=== PATIENT | male | born 1940 | race Caucasian/White ===

== ENCOUNTER 2020-04-09 15:12 | Emergency (ER) | payer MEDICARE, BC, SELFPAY ==
[2020-04-09 15:14] VITALS: BP 145/87; PULSE 82; RESP 18; TEMP 36.3; O2SAT 95; BMI 22.4
--- NOTE | 2020-04-09 16:17 | XRR_ITS ---
PROCEDURE INFORMATION: Exam: XR Left Wrist Exam date and time: 04/09/2020 4:34 PM Age: 79 years old Clinical indication: Injury or trauma; Fall; Crushing; Wrist; Prior surgery; Surgery type: Left second finger; Additional info: Wrist injury TECHNIQUE: Imaging protocol: XR Left wrist. Views: 3 or more views. COMPARISON: No relevant prior studies available. FINDINGS: Bones/joints: Negative for acute bony abnormality. There is a sclerotic deformity involving the distal shaft of the proximal phalange of the 2nd digit which may reflect a old injury. Soft tissues: Normal. XR/XR wrist LT min 3V* [id number] IMPRESSION: No acute findings. 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
--- NOTE | 2020-04-09 16:17 | ED_ITS ---
HPI - Fall General: Chief Complaint: Fall Stated Complaint: fall, cut on left hand Time Seen by Provider: 04/09/20 16:07 History of Present Illness: HPI Narrative: Patient is a 79-year-old male comes to the ED after having a fall. Fall occurred just prior to arrival. Patient says he was walking on a sidewalk and tripped. He went down hitting his right knee on sidewalk first and then his left hand hit concrete causing skin tear. He has a skin tear on the dorsal side of his left hand. He also complains of having a little bit of pain with movement of the left wrist. Superficial abrasion on right knee, but denies any pain in right knee with ambulation. Denies any head trauma or loss of consciousness. Patient says he is up-to-date on his tetanus shot. Associated symptoms-after fall: Denies abdominal pain, chest pain, headache(s), hematuria or neck pain Review of Systems Const: Denies: fever(s), chills or fatigue Eyes: Denies: change in vision or eye discomfort ENMT: Denies: throat pain, odynophagia, nasal discharge or nasal congestion Card: Denies: chest pain, palpitations, edema, swelling of feet/ankles, dyspnea on exertion or orthopnea Resp: Denies: dyspnea, productive cough or non-productive cough GI: Denies: abdominal pain, nausea, vomiting, diarrhea, constipation or hematochezia : Denies: flank pain, difficulty urinating, dysuria or hematuria Musc: Reports: extremity pain (mild left wrist pain.); Denies: neck pain, back pain or extremity swelling Skin/Breast: Reports: new lesions (skin tear on dorsal side of left wrist); Denies: rash Neuro: Denies: headache(s), numbness in extremities or weakness in extremities Physical Exam Const: COMMON NORMALS: no acute distress, patient oriented x3 and alert GENERAL APPEARANCE: cooperative and comfortable HENMT: COMMON NORMALS: normocephalic HEAD & SCALP: normocephalic MOUTH: Normal oral and palatal mucosa present THROAT: posterior oropharynx normal and uvula midline Neck/C-Spine: COMMON NORMALS: supple GENERAL: Yes normal visual inspection Resp: COMMON NORMALS: normal respiratory effort, No retractions, No use of accessory muscles and clear to auscultation bilaterally AUSCULTATION: clear to auscultation bilaterally Cardio: COMMON NORMALS: regular rate, regular rhythm, S1 normal heart sound present, S2 normal heart sound present, No gallops present (Cardio), No clicks present (Cardio), No murmurs present (Cardio) and Peripheral pulses 2+ throughout RATE: regular rate RHYTHM: regular rhythm HEART SOUNDS: S1 normal heart sound present and S2 normal heart sound present PERIPHERAL PULSES: Peripheral pulses 2+ throughout GI: COMMON NORMALS: Normal to inspection, nondistended, normoactive bowel sounds present, Soft to palpation, non-tender and no masses PALPATION: Yes Soft to palpation : COMMON NORMALS: Yes no CVA tenderness BLADDER/KIDNEY EXAM: Yes no CVA tenderness Back/Pelvis: COMMON NORMALS: no CVA tenderness Extremity: NARRATIVE EXTREMITY EXAM: Left hand?small skin tear approximately 2 cm in length on dorsal aspect of left hand. No visible deformity seen in left wrist and neurovascular intact with radial pulse 2+. Full range of motion with minimal pain in left wrist. Patient's right knee has a superficial abrasion that is not actively bleeding. No edema or ecchymosis in right knee seen. Neuro: COMMON NORMALS: patient oriented x3 and moves all extremities SENSORIUM/ORIENTATION: Yes alert Skin: NARRATIVE SKIN EXAM: Left hand?small skin tear approximately 2 cm in length on dorsal aspect of left hand. GENERAL SKIN EXAM: dry skin Course Vital Signs: Vital signs: Vital Signs Temperature 97.3 F L 04/09/20 15:14 Pulse Rate 82 04/09/20 15:14 Respiratory Rate 18 04/09/20 15:14 Blood Pressure 108/69 04/09/20 17:10 Pulse Oximetry 95 04/09/20 15:14 MDM - Fall MDM Narrative: Medical decision making narrative: Patient is a 79-year-old male comes to the ED after a fall and has a skin tear on dorsal side of left hand. Patient is up-to-date on his tetanus. He has some mild left wrist pain with range of motion. Patient in no other acute pain or distress. He denies any head trauma or loss of consciousness after fall. Nurse irrigated skin tear extensively and then placed bacitracin on it and applied a new bandage. Left wrist x-ray showed no acute fractures or findings. Patient was discharged with a prescription of cephalexin for prophylactic treatment. Return to ED precautions given. Follow-up with PCP in 7 to 10 days for reevaluation. He was instructed on how to care for skin tear. Patient understood and agreed with plan. Imaging Data^: Xray Ortho: Attestation: I personally reviewed and interpreted this imaging study as follows: My impression: Left wrist x-ray?no acute fractures or findings seen. Discharge Plan Discharge Patient Disposition: Home Clinical Impression: Skin tear of hand without complication Qualifiers: Encounter type: initial encounter Laterality: left Qualified Code(s): S61.412A - Laceration without foreign body of left hand, initial encounter Fall Qualifiers: Encounter type: initial encounter Qualified Code(s): W19.XXXA - Unspecified fall, initial encounter Condition: Stable Prescriptions: New cephalexin 500 mg capsule 500 mg PO TID 4 Days Qty: 12 RF: 0 Discharge Orders: Discharge ED (Routine); Ordered 04/09/20 Ordered By: Cole Levy Discharge Diet: Regular Discharge Activity: Resume usual activity Patient Instructions: Skin Tear (ED) Activity Restrictions/Additional Instructions: Follow-up with medical provider as directed in 7 to 10 days for reevaluation. Clean skin tear daily with warm soap and water, apply Neosporin and bandage daily. Take prophylactic dose of antibiotics as prescribed to help prevent any infection. Watch for signs of infection such as erythema, warmth, tenderness or purulent drainage. If you see any other signs return to the ED, urgent care or primary care immediately for reevaluation. Take medications as prescribed. Return to the ER or your medical provider if condition worsens. Please read and understand discharge instructions. If any questions, please ask. Coding Level of Care Code ED Ground Water Pump Installer for Elodia Mack Exam Comprehensive
[2020-04-09 16:52] VITALS: BP 105/62
[2020-04-09] MEDS: bacitracin ointment Pkt 1 EACH TOPICAL (16:55)
[2020-04-09 17:10] VITALS: BP 108/69
== END 2020-04-09 17:11 | disposition home or self-care (01) ==
PROVIDERS: Emergency Provider Physician Assistant
DX: S61.412A Laceration without foreign body of left hand, initial encounter (principal); W01.0XXA Fall on same level from slipping, tripping and stumbling without subsequent striking against object, initial encounter
CPT/HCPCS: 12345; 73110; 99281; 99283

== ENCOUNTER 2022-04-10 13:48 | Emergency (ER) | payer MEDICARE, BC, SELFPAY ==
[2022-04-10 13:53] VITALS: BP 136/81; PULSE 115; RESP 16; TEMP 36.7; O2SAT 96
--- NOTE | 2022-04-10 14:13 | ED_ITS ---
HPI - Back Pain/Injury General: Chief Complaint: Back Pain/Injury Stated Complaint: back pain Time Seen by Provider: 04/10/22 14:11 History of Present Illness: Mr. Sánchez is a 81-year-old gentleman presenting to the emergency department due to right-sided flank pain. Onset of symptoms was approximately 90 minutes prior to arrival without known specific provoking event. Does have a history of kidney stones though is unsure if this feels similar. Intensity is moderate to severe. Has had nausea but no vomiting. Denies other significant changes in health or infectious symptoms. No other specific changes in health, exacerbating, or alleviating factors identified. Onset (ago): minute(s) Timing: constant Severity: severe Similar Symptoms Previously: Yes Quality: sharp and stabbing Location: right flank Radiation: groin Exacerbating factors: none Relieving factors: none Associated symptoms: Reports nausea; Deny chills, fever(s), hematuria, urinary urgency or vomiting Review of Systems General: Reports: 10 or more systems reviewed and unremarkable except in HPI and below Const: Denies: fever(s) or chills GI: Reports: nausea; Denies: vomiting : Denies: urinary urgency or hematuria PFS ED PFSH: Family History (Updated 04/14/22 @ 13:56 by Vj Shearer) Mother , at age 99 CAD (coronary artery disease) Dementia Father , at age 67 CAD (coronary artery disease) Social History (Updated 04/14/22 @ 13:57 by Vj Shearer) Smoking and tobacco status: never smoked Alcohol intake: current Alcohol intake frequency: few times a month Adopted: No Household members: spouse Marital status: Current occupational status: retired History of recent travel: No Physical Exam Const: COMMON NORMALS: alert GENERAL APPEARANCE: cooperative, well developed and in distress (Initially uncomfortable due to pain) HENMT: COMMON NORMALS: normocephalic and atraumatic HEAD & SCALP: normocephalic and atraumatic Eye: COMMON NORMALS: conjunctivae normal CONJUNCTIVA: Yes conjunctivae normal SCLERA: sclerae normal Neck/C-Spine: COMMON NORMALS: supple GENERAL: Yes trachea midline Resp: COMMON NORMALS: normal respiratory effort and clear to auscultation bilaterally EFFORT & INSPECTION: Yes able to speak in complete sentences AUSCULTATION: clear to auscultation bilaterally Cardio: COMMON NORMALS: regular rhythm RATE: tachycardic RHYTHM: regular rhythm GI: COMMON NORMALS: Soft to palpation PALPATION: Yes Soft to palpation and No Tenderness to palpation present (GI) : COMMON NORMALS: Yes normal external exam and Yes Testes normal Extremity: GENERAL: Yes normal exam except as noted and No edema Neuro: COMMON NORMALS: moves all extremities SENSORIUM/ORIENTATION: Yes alert and No Orientation impaired Psych: COMMON NORMALS: mental status grossly normal and Normal thought process present THOUGHT PROCESS: Normal thought process present Course Vital Signs: Vital signs: Vital Signs Temperature 98.1 F 04/10/22 13:53 Pulse Rate 81 04/10/22 17:29 Respiratory Rate 16 04/10/22 17:29 Blood Pressure 121/74 04/10/22 16:00 Pulse Oximetry 99 04/10/22 17:29 Oxygen Delivery Me thod 04/10/22 16:00 MDM - Back Pain/Injury Medical Decision Making 81-year-old gentleman presenting to the emerged department due to sudden onset of flank pain. Patient is quite uncomfortable on initial exam. Exam otherwise as above. No evidence of acute surgical abdomen. Labs with no leukocytosis, normal hemoglobin, normal platelet count. Metabolic panel not significant derangement. Urinalysis with evidence of hematuria withou t convincing evidence of urinary tract infection superimposed. CT demonstrates mild right hydroureteronephrosis secondary to foreign ammeter mid ureteral calcification. Incidental findings noted discussed with patient. There is no recent laboratory studies for comparison or comparison imaging michael dies. Patient symptoms are significantly improved with antiemetic, morphine, ketorolac. Most likely etiology of patient symptoms is midureteral stone. Given improvement as well as physical exam improvement and ability to tolerate p.o. intake and the absence of signs of systemic illness or evidence of urinary tract infection believe that outpatient management with close follow-up is appropriate . Strict return precautions also appropriate. Plan treat patient with Flomax, oxycodone, Zofran. The results of ED evaluation were discussed with the patient including prescriptions and/or symptomatic cares (if applicable) including appropriate and responsible use, followup plan, and return precautions. The patient verbalized understanding and felt safe for discharge. Medical Records I reviewed the patient's medical records. Labs I reviewed the patient's lab results. 04/10/22 14:30 04/10/22 14:30 Radiology Impressions Abdomen/Pelvis CT 04/10/22 14:57 IMPRESSION: 1. Very mild RIGHT hydroureteronephrosis secondary to a 4 mm calcification in the mid ureter. 2. Sigmoid diverticulosis without acute diverticulitis. 3. Atherosclerosis aorta. 4. Cholelithiasis without acute cholecystitis. 5. Moderate size hiatal hernia. Laboratory Results WBC 7.9 10^3/uL (4.0-10.0) 04/10/22 14:30 RBC 4.54 10^6/uL (4.1-5.3) 04/10/22 14:30 Hgb 13.8 g/dL (11.7-16.6) 04/10/22 14:30 Hct 41.0 % (42.0-52.0) L 04/10/22 14:30 MCV 90.3 fl (80-94) 04/10/22 14:30 MCH 30.4 pg (28.0-34.0) 04/10/22 14:30 MCHC 33.7 g/dL (30.0-36.0) 04/10/22 14:30 RDW 11.8 % (12.1-15.1) L 04/10/22 14:30 Plt Count 143 10^3/cmm (130-400) 04/10/22 14:30 MPV 10.2 fL (7.4-10.4) 04/10/22 14:30 Neut % (Auto) 72.8 % 04/10/22 14:30 Lymph % (Auto) 17.1 % 04/10/22 14:30 [place] % (Auto) 8.0 % 04/10/22 14:30 Eos % (Auto) 1.3 % 04/10/22 14:30 Baso % (Auto) 0.4 % 04/10/22 14:30 Neut # (Auto) 5.76 10^3/uL (1.8-7.7) 04/10/22 14:30 Lymph # (Auto) 1.4 10^3/uL (0.8-4.8) 04/10/22 14:30 [place] # (Auto) 0.6 10^3/uL (0.2-0.9) 04/10/22 14:30 Eos # (Auto) 0.1 10^3/uL (0.0-0.8) 04/10/22 14:30 Baso # (Auto) 0.0 10^3/uL (0.0-0.1) 04/10/22 14:30 Nucleated RBC % (auto) 0 % 04/10/22 14:30 Nucleated RBCs # 0.0 /100WBC 04/10/22 14:30 Sodium 137 mmol/L (136-145) 04/10/22 14:30 Potassium 4.1 mmol/L (3.5-5.1) 04/10/22 14:30 Chloride 101 mmol/L (98-107) 04/10/22 14:30 Carbon Dioxide 23 mmol/L (22-29) 04/10/22 14:30 Anion Gap 17.1 (5-19) 04/10/22 14:30 BUN 16 mg/dL (8-23) 04/10/22 14:30 Creatinine 1.1 mg/dL (0.7-1.2) 04/10/22 14:30 GFR Calculation Not Reportable 04/10/22 14:30 Glucose 116 mg/dL (65-115) H 04/10/22 14:30 Calculated Osmolality 286 mOsm/kg (285-295) 04/10/22 14:30 Calcium 9.3 mg/dL (8.5-10.5) 04/10/22 14:30 Total Bilirubin 0.7 mg/dL (0.15-1.2) 04/10/22 14:30 AST 19 U/L (0-40) 04/10/22 14:30 ALT 12 U/L (0-41) 04/10/22 14:30 Alkaline Phosphatase 142 U/L (40-130) H 04/10/22 14:30 Total Protein 7.1 g/dL (6.6-8.7) 04/10/22 14:30 Albumin 4.0 g/dL (3.5-5.2) 04/10/22 14:30 Globulin 3.1 g/dL (1.3-4.6) 04/10/22 14:30 Urine Color Brown (Yellow) 04/10/22 15:59 Urine Appearance Cloudy (CLEAR) A 04/10/22 15:59 Urine pH 5 (5-7) 04/10/22 15:59 Ur Specific [place] 1.025 (1.005-1.030) 04/10/22 15:59 Urine Protein 1+ (Negative) H 04/10/22 15:59 Urine Glucose (UA) Norm (Normal) 04/10/22 15:59 Urine Ketones 1+ (Negative) H 04/10/22 15:59 Urine Blood 3+ (Negative) H 04/10/22 15:59 Urine Nitrate Negative (Negative) 04/10/22 15:59 Urine Bilirubin 1+ (Negative) H 04/10/22 15:59 Urine Urobilinogen Norm mg/dL (Negative) 04/10/22 15:59 Ur Leukocyte Esterase Trace (Negative) H 04/10/22 15:59 Urine RBC >100 /hpf (0-2) H 04/10/22 15:59 Urine WBC 0-4 /hpf (0-5) H 04/10/22 15:59 Ur Squamous Epith Cells 0-4 /hpf (0-5) H 04/10/22 15:59 Amorphous Sediment Not Reportable 04/10/22 15:59 Urine Bacteria Trace /hpf (NONE) 04/10/22 15:59 Discharge Plan Discharge Patient Disposition: Home Clinical Impression: Ureteral calculus Condition: Stable Prescriptions: New ondansetron 4 mg tablet,disintegrating 4 mg PO Q8H PRN (Reason: nausea and vomiting) Qty: 15 0RF oxycodone 5 mg tablet 5 mg PO Q4H PRN (Reason: pain) Qty: 20 0RF No Action atorvastatin 10 mg tablet 10 mg PO BEDTIME metoprolol succinate 50 mg tablet extended release 24 hr 50 mg PO DAILY glucosamine sulfate [Glucosamine] 500 mg Tablet 2,000 mg PO DAILY Rx Instructions: administer with a meal aspirin 81 mg Tablet,Delayed Release (Dr/Ec) 81 mg PO DAILY lansoprazole [Prevacid] 30 mg Capsule,Delayed Release(Dr/Ec) 30 mg PO DAILY doxazosin 4 mg tablet 4 mg PO DAILY furosemide 20 mg tablet 20 mg PO BID PRN (Reason: Edema) olmesartan 40 mg tablet 40 mg PO DAILY Linzess 290 mcg Capsule 290 mcg PO DAILY PRN (Reason: Constipation) Eliquis 5 mg tablet 5 mg PO BID Ocuvite Adult 50 Plus 250 mg (90 mg-160 mg) Capsule 1 cap PO QAM tamsulosin [Flomax] 0.4 mg capsule 0.4 mg PO DAILY Qty: 10 0RF Discharge Orders: Discharge ED (Routine); Ordered 04/10/22 Ordered By: Jimy Monahan Referrals: Lv Snadoval MD [Primary Care Provider] - Discharge Diet: Usual diet Discharge Activity: Increase activity as tolerated Patient Instructions: How to Strain Your Urine (ED), Ureteral Stones (ED), Opioid Safety Activity Restrictions/Additional Instructions: Thank you for visiting the emergency department. You were seen and evaluated for flank pain. The most likely cause of your symptoms is related to a kidney stone. Given improvement in symptoms as well as laboratory and imaging evaluation I do not believe that you need hospitalization at this time. I will prescribe pain medication, antinausea medication. You may use [id number] medications such as acetaminophen and ibuprofen for pain howev er please do not exceed the daily recommended dosage as listed on the packaging and please keep in mind that many namebrand medications contain the same active ingredients. Please avoid these medications if previously instructed to do so by another physician due to other underlying medical condition. Use opioids cautiously as discussed. I will message case management for follow-up with urology. Please also follow- up with your primary care provider. Return to the emergency department for fevers, uncontrolled pain, vomiting with inability to tolerate oral intake, or anything else that you are concerned about and feel needs emergency department evaluation. Coding Level of Care Code ED Final Inspector Balance Wheel for Elodia Mack
[2022-04-10] MEDS: ondansetron 2 mg/ML SDV 2 mL 4 MG IVP (14:31)
[2022-04-10 14:32] VITALS: RESP 22; O2SAT 98
[2022-04-10] MEDS: morphine 4 mg/mL SDV 1 mL IVP (14:32)
[2022-04-10] MEDS: ketorolac 30 mg/mL INJ 15 MG IVP (14:36)
[2022-04-10 14:55] LABS: Basophils % 0.4 %; Eosinophils # 0.1 10^3/uL (0.0-0.8); Eosinophils % 1.3 %; Hemoglobin 13.8 g/dL (11.7-16.6); Lymphocytes # 1.4 10^3/uL (0.8-4.8); Lymphocytes % 17.1 %; Mean Corpuscular HGB Conc 33.7 g/dL (30.0-36.0); Mean Corpuscular Hemoglobin 30.4 pg (28.0-34.0); Mean Corpuscular Volume 90.3 fl (80-94); Mean Platelet Volume 10.2 fL (7.4-10.4); Monocytes # 0.6 10^3/uL (0.2-0.9); Neutrophils # 5.76 10^3/uL (1.8-7.7); Neutrophils % 72.8 %; Nucleated Red Blood Cells % 0 %; Platelet Count 143 10^3/cmm (130-400); Red Blood Count 4.54 10^6/uL (4.1-5.3); Red Cell Distribution Width 11.8 % (12.1-15.1); White Blood Count 7.9 10^3/uL (4.0-10.0)
--- NOTE | 2022-04-10 14:57 | CT_ITS ---
WS: [id number] CT ABDOMEN AND PELVIS NONCONTRAST HISTORY: R flank pain TECHNIQUE: Imaging performed through the abdomen and pelvis. Coronal and sagittal reformats are submi tted. All CT scans at [facility] use at least one of these dose optimization techniques: auto mated exposure control; mA and/or kV adjustment per patient size (includes targeted exams where dose is matched to clinical indication); or iterative reconstruction. DLP: 696.74 mGy.cm COMPARISON: None available. Lower thorax: Chronic emphysema. Mild cardiomegaly. Moderate hiatal hernia. Liver: Normal size liver. There are a few low-attenuation nodules in the superior liver. Too small to characterize. No bile duct dilatation. Gallbladder: Well distended with stones. No evidence for acute cholecystitis. Pancreas: Mild atrophy. Spleen: Normal. Adrenal glands: Normal. No mass. Right kidney: Perinephric stranding. Mild dilatation of the renal pelvis and ureter. 4 mm calcificati on at the level of L4 causing the obstruction. Distal ureter is normal size. Left kidney: Mild perinephric stranding. Exophytic 1.2 cm cyst from the upper pole. Aorta: Extensive atherosclerotic plaque. Mild ectasia. No free fluid, intraperitoneal air or significant lymphadenopathy. GI tract: Appendix is definitely identified. No GI tract obstruction. Numerous diverticula in the sig moid colon without acute diverticulitis. Abdominal wall: Small umbilical hernia contains fat only. Pelvis: Enlarged prostate gland encroaching into the urinary bladder. Osseous structures: L4 anterolisthesis by 9 mm. Degenerative facet disease and disc disease throughou t the lumbar spine. CT/CT kidney stone [id number] IMPRESSION: 1. Very mild RIGHT hydroureteronephrosis secondary to a 4 mm calcification in the mid ureter. 2. Sigmoid diverticulosis without acute diverticulitis. 3. Atherosclerosis aorta. 4. Cholelithiasis without acute cholecystitis. 5. Moderate size hiatal hernia.
[2022-04-10 15:17] LABS: Alanine Aminotransferase 12 U/L (0-41); Alkaline Phosphatase 142 U/L (40-130); Anion Gap 17.1 (5-19); Aspartate Amino Transferase 19 U/L (0-40); Blood Urea Nitrogen 16 mg/dL (8-23); Calcium 9.3 mg/dL (8.5-10.5); Carbon Dioxide 23 mmol/L (22-29); Chloride 101 mmol/L (98-107); Globulin 3.1 g/dL (1.3-4.6); Glucose 116 mg/dL (65-115); Osmolality Calculated 286 mOsm/kg (285-295); Potassium 4.1 mmol/L (3.5-5.1); Sodium 137 mmol/L (136-145); Total Bilirubin 0.7 mg/dL (0.15-1.2); Total Protein 7.1 g/dL (6.6-8.7)
[2022-04-10 16:00] VITALS: BP 121/74; PULSE 73; RESP 16; O2SAT 94
[2022-04-10 17:04] LABS: Add Urine Microscopic? YES; Bilirubin Urine 1+ (Negative); Blood Urine 3+ (Negative); Glucose Urine UA Norm (Normal); Ketones Urine 1+ (Negative); Leukocyte Esterase Urine Trace (Negative); Nitrate Urine Negative (Negative); Protein Urine 1+ (Negative); Specific Gravity, Urine 1.025 (1.005-1.030); Urine Appearance Cloudy (CLEAR); Urine Color Brown (Yellow); Urobilinogen Urine Norm (Negative); pH Urine 5 (5-7)
[2022-04-10 17:06] LABS: Add Urine Culture? Yes; Bacteria Urine TRACE /hpf; RBC Urine >100 /hpf (0-2); Squamous Epithelial Cell Urine 0-4 /hpf (0-5); WBC Urine 0-4 /hpf (0-5)
[2022-04-10 17:29] VITALS: PULSE 81; RESP 16; O2SAT 99
--- NOTE | 2022-04-13 10:49 | DCPLANNER ---
Addendum entered by Almaz Kramer 04/16/22 12:03: Patient had a follow up appointment scheduled with urology - patient did attend appointment. Original Note: client customer manager had message to schedule a follow up appointment for patient with urology. client customer manager sent patients information to the front office staff at urology. Patients information will be printed and reviewed. Clinic will call patient with appointment information.
== END 2022-04-10 17:30 | disposition home or self-care (01) ==
PROVIDERS: Emergency Provider Emergency Medicine; PCP Otolaryngology
DX: N13.2 Hydronephrosis with renal and ureteral calculous obstruction (principal); Z79.01 Long term (current) use of anticoagulants; Z79.82 Long term (current) use of aspirin
CPT/HCPCS: 36415; 74176; 80053; 81001; 85025; 87040; 87086; 96374; 96375; 99285; J1885; J2270; J2405

== ENCOUNTER 2022-04-12 05:15 | Emergency (ER) | payer MEDICARE, BC, SELFPAY ==
[2022-04-12 05:20] VITALS: BP 119/82; PULSE 57; RESP 20; TEMP 36.9; O2SAT 92; BMI 22.5
[2022-04-12 05:36] VITALS: RESP 20; O2SAT 94
[2022-04-12 05:36] LABS: Basophils % 0.2 %; Eosinophils % 0.1 %; Hematocrit 39.5 % (42.0-52.0); Hemoglobin 13.6 g/dL (11.7-16.6); Lymphocytes % 10.3 %; Mean Corpuscular HGB Conc 34.4 g/dL (30.0-36.0); Mean Corpuscular Hemoglobin 31.1 pg (28.0-34.0); Mean Corpuscular Volume 90.2 fl (80-94); Mean Platelet Volume 9.9 fL (7.4-10.4); Monocytes % 10.8 %; Neutrophils # 7.18 10^3/uL (1.8-7.7); Neutrophils % 78.3 %; Nucleated Red Blood Cells % 0 %; Platelet Count 124 10^3/cmm (130-400); Red Blood Count 4.38 10^6/uL (4.1-5.3); Red Cell Distribution Width 11.7 % (12.1-15.1); White Blood Count 9.2 10^3/uL (4.0-10.0)
[2022-04-12] MEDS: morphine 4 mg/mL SDV 1 mL IVP (05:36)
[2022-04-12] MEDS: ondansetron 2 mg/ML SDV 2 mL 4 MG IVP (05:36)
--- NOTE | 2022-04-12 05:43 | CTR_ITS ---
PROCEDURE INFORMATION: Exam: CT Abdomen And Pelvis Without Contrast Exam date and time: 04/12/2022 5:56 AM Age: 81 years old Clinical indication: Abdominal pain; Flank; Right; Additional info: Flank pain HX stone TECHNIQUE: Imaging protocol: Computed tomography of the abdomen and pelvis without contrast. Radiation optimization: All CT scans at this facility use at least one of these dose optimization techniques: automated exposure control; mA and/or kV adjustment per patient size (includes targeted exams where dose is matched to clinical indication); or iterative reconstruction. COMPARISON: CT kidney stone [id number] 10/04/2022 15:05 RADIATION DOSE METRICS: Total DLP (mGy-cm): 715.13 FINDINGS: Lungs: [id number] lung base atelectasis or scarring. Heart: The heart is upper limits normal size. Coronary arteries: Partially assessed CABG. Diaphragm: Small hiatal hernia. Liver: Unremarkable. No discrete mass. Gallbladder and bile ducts: Few small calcified gallstones are visualized. Pancreas: Unremarkable with no suspicious mass. No ductal dilation. Spleen: The spleen is not enlarged. No suspicious mass is noted. Adrenal glands: Normal. No mass. Kidneys and ureters: [id number] right hydroureteronephrosis. Right distal ureteral 5 mm calculus causing this obstruction. Left distal ureteral 8 mm calculus causes no obstruction. Few small bilateral renal cysts are noted. Stomach and bowel: Moderate sigmoid diverticulosis. No small bowel obstruction, abscess or free air. Appendix: Appendix not well seen. Intraperitoneal space: Trace amount of right posterior pericolic gutter fluid on series 5, image 140. This is of uncertain significance. Trace pelvic free fluid. Vasculature: Advanced diffuse vascular calcification noted. Lymph nodes: No enlarged lymph nodes. Urinary bladder: Unremarkable as visualized. Reproductive: Very large prostate. Bones/joints: Left hip arthroplasty. Severe lower lumbar degenerative change. Soft tissues: Tiny fat umbilical hernia. CT/CT kidney stone [id number] IMPRESSION: 1. From 2 days ago, the right ureteral calculus has passed more distally, and is now present in the right distal ureter. [id number] obstruction is similar. 2. Left distal ureteral prominent calculus is unchanged, nonobstructing. This is probably chronic. 3. Numerous other chronic findings are similar to 2 days ago. COMMENTS: Consistent with the [employer]'s Incidental Findings Committee white paper (J Am Tima Radiol 2018): Any incidental renal lesion less than 1 cm or classified as too small to characterize, or any incidental cystic renal lesion characterized as simple-appearing, is likely benign. No follow-up imaging is recommended for these lesions per consensus recommendations based on imaging criteria.
[2022-04-12 05:48] LABS: Alanine Aminotransferase 10 U/L (0-41); Albumin Level 3.9 g/dL (3.5-5.2); Alkaline Phosphatase 117 U/L (40-130); Aspartate Amino Transferase 16 U/L (0-40); Blood Urea Nitrogen 20 mg/dL (8-23); Calcium 8.7 mg/dL (8.5-10.5); Carbon Dioxide 22 mmol/L (22-29); Chloride 98 mmol/L (98-107); Glucose 107 mg/dL (65-115); Osmolality Calculated 275 mOsm/kg (285-295); Sodium 131 mmol/L (136-145); Total Bilirubin 1.2 mg/dL (0.15-1.2); Total Protein 6.9 g/dL (6.6-8.7)
[2022-04-12] MEDS: sodium chloride 0.9% 1,000 ML 999 ML IV (06:28)
[2022-04-12] MEDS: ketorolac 30 mg/mL INJ 10 MG IVP (06:28)
[2022-04-12 06:31] VITALS: BP 120/57; PULSE 69; RESP 18; O2SAT 93
--- NOTE | 2022-04-12 06:41 | ED_ITS ---
HPI - Abdominal Pain General: Chief Complaint: Abdominal Pain Stated Complaint: possible kidney stone Time Seen by Provider: 04/12/22 06:06 History of Present Illness: 81-year-old male who presents with right flank pain. The patient states pain started on Wednesday. He was seen here and diagnosed with kidney stones. He states the pain is continued, not improving at all. He has been trying the oxycodone without improvement. He has had increased urinary frequency and urinating small amounts. He denies retention. He has had some nausea but no vomiting. No fever. Urine has been clear. Bowel movements have been normal. States the pain is moderate in severity. It had worsened this morning but it has let up some. Associated Symptoms: Reports nausea; Denies chills, constipation, diarrhea, dysuria, fever(s), hematochezia, hematuria and vomiting Review of Systems Const: Denies: fever(s), chills or fatigue Eyes: Denies: change in vision or eye discomfort ENMT: Denies: throat pain, odynophagia, nasal discharge or nasal congestion Card: Denies: chest pain, palpitations, edema, swelling of feet/ankles, dyspnea on exertion or orthopnea Resp: Denies: dyspnea, productive cough or non-productive cough GI: Reports: abdominal pain (Right flank and right lower abdomen) and nausea; Denies: vomiting, diarrhea, constipation or hematochezia : Reports: flank pain, difficulty urinating and urinary frequency; Denies: dysuria, hematuria or genital pain Musc: Reports: extremity pain (mild left wrist pain.); Denies: neck pain, back pain or extremity swelling Skin/Breast: Reports: new lesions (skin tear on dorsal side of left wrist); Denies: rash Neuro: Denies: headache(s), numbness in extremities or weakness in extremities Physical Exam Const: COMMON NORMALS: no acute distress, patient oriented x3, alert and well nourished HENMT: COMMON NORMALS: normocephalic and moist oral mucous membranes HEAD & SCALP: normocephalic Eye: COMMON NORMALS: conjunctivae normal and no scleral icterus CONJUNCTIVA: Yes conjunctivae normal Resp: COMMON NORMALS: normal respiratory effort and clear to auscultation bilaterally AUSCULTATION: clear to auscultation bilaterally Cardio: COMMON NORMALS: regular rate and regular rhythm RATE: regular rate RHYTHM: regular rhythm GI: COMMON NORMALS: Normal to inspection, nondistended, normoactive bowel sounds present, Soft to palpation and non-tender PALPATION: Yes Soft to palpation : OTHER: Right CVA tenderness Extremity: COMMON NORMALS: no calf tenderness and no pedal edema Neuro: COMMON NORMALS: patient oriented x3 SENSORIUM/ORIENTATION: Yes alert Course ED course: 81-year-old male who presents with persistent right flank pain. The patient was seen here 2 days ago, diagnosed with a kidney stone. We will start an IV, give him IV fluids as well as IV Zofran and morphine for pain. We will obtain a CT scan to reevaluate the location of the pre-existing kidney stone. We will check urinalysis as well as a CBC and BMP to make sure that the patient's renal function is stable and that he does not have an associated UTI. Vital Signs: Vital signs: Vital Signs Temperature 98.5 F 04/12/22 05:20 Pulse Rate 85 04/12/22 07:50 Respiratory Rate 14 04/12/22 07:50 Blood Pressure 128/64 04/12/22 07:50 Pulse Oximetry 98 04/12/22 07:50 Oxygen Delivery Me thod 04/12/22 07:50 MDM - Abdominal Pain Medical Decision Making Patient presents with persistent right flank pain. Recently seen for a right ureteral stone. Today he presents with recurrent pain. He has had an IV placed and has been given a liter of saline. He has been given IV Toradol and IV morphine for pain with resolution of his pain. His white blood cell count is normal. His renal function has slightly increased with a creatinine of 1.8. BUN of 20. His creatinine was 1.12 days prior. He is afebrile. Urinalysis is negative for UTI. He just has persistent hematuria. On CT, he has a right distal ureteral stone which is 4 mm and is passed into the distal ureter. It is moved more distal from prior. He also has a distal left ureteral chronic nonobstructive stone. Patient has resolution of his pain and is feeling significantly better. I feel he stable for discharge home. I have recommended that he contact the urologist Wednesday to be seen in follow-up if he has not seen the stone passed before then. At this time I feel he stable for discharge home. Medical Records I reviewed the patient's medical records. I reviewed the patient's previous CT which showed a 4 mm distal right ureteral stone. Creatinine was 1.1 UA showed hematuria but no infection. Lab Data 04/12/22 05:25 04/12/22 05:25 Labs/Radiology: Radiology Impressions Abdomen/Pelvis CT 04/12/22 05:43 IMPRESSION: 1. From 2 days ago, the right ureteral calculus has passed more distally, and is now present in the right distal ureter. [id number]-[id number] obstruction is similar. 2. Left distal ureteral prominent calculus is unchanged, nonobstructing. This is probably chronic. 3. Numerous other chronic findings are similar to 2 days ago. COMMENTS: Consistent with the [employer]'s Incidental Findings Committee white paper (J Am Tima Radiol 2018): Any incidental renal lesion less than 1 cm or classified as too small to characterize, or any incidental cystic renal lesion characterized as simple-appearing, is likely benign. No follow-up imaging is recommended for these lesions per consensus recommendations based on imaging criteria. Laboratory Results WBC 9.2 10^3/uL (4.0-10.0) 04/12/22 05:25 RBC 4.38 10^6/uL (4.1-5.3) 04/12/22 05:25 Hgb 13.6 g/dL (11.7-16.6) 04/12/22 05:25 Hct 39.5 % (42.0-52.0) L 04/12/22 05:25 MCV 90.2 fl (80-94) 04/12/22 05:25 MCH 31.1 pg (28.0-34.0) 04/12/22 05:25 MCHC 34.4 g/dL (30.0-36.0) 04/12/22 05:25 RDW 11.7 % (12.1-15.1) L 04/12/22 05:25 Plt Count 124 10^3/cmm (130-400) L 04/12/22 05:25 MPV 9.9 fL (7.4-10.4) 04/12/22 05:25 Neut % (Auto) 78.3 % 04/12/22 05:25 Lymph % (Auto) 10.3 % 04/12/22 05:25 [place] % (Auto) 10.8 % 04/12/22 05:25 Eos % (Auto) 0.1 % 04/12/22 05:25 Baso % (Auto) 0.2 % 04/12/22 05:25 Neut # (Auto) 7.18 10^3/uL (1.8-7.7) 04/12/22 05:25 Lymph # (Auto) 1.0 10^3/uL (0.8-4.8) 04/12/22 05:25 [place] # (Auto) 1.0 10^3/uL (0.2-0.9) H 04/12/22 05:25 Eos # (Auto) 0.0 10^3/uL (0.0-0.8) 04/12/22 05:25 Baso # (Auto) 0.0 10^3/uL (0.0-0.1) 04/12/22 05:25 Nucleated RBC % (auto) 0 % 04/12/22 05:25 Nucleated RBCs # 0.0 /100WBC 04/12/22 05:25 Sodium 131 mmol/L (136-145) L 04/12/22 05:25 Potassium 4.0 mmol/L (3.5-5.1) 04/12/22 05:25 Chloride 98 mmol/L (98-107) 04/12/22 05:25 Carbon Dioxide 22 mmol/L (22-29) 04/12/22 05:25 Anion Gap 15.0 (5-19) 04/12/22 05:25 BUN 20 mg/dL (8-23) 04/12/22 05:25 Creatinine 1.8 mg/dL (0.7-1.2) H 04/12/22 05:25 GFR Calculation Not Reportable 04/12/22 05:25 Glucose 107 mg/dL (65-115) 04/12/22 05:25 Calculated Osmolality 275 mOsm/kg (285-295) L 04/12/22 05:25 Calcium 8.7 mg/dL (8.5-10.5) 04/12/22 05:25 Total Bilirubin 1.2 mg/dL (0.15-1.2) 04/12/22 05:25 AST 16 U/L (0-40) 04/12/22 05:25 ALT 10 U/L (0-41) 04/12/22 05:25 Alkaline Phosphatase 117 U/L (40-130) 04/12/22 05:25 Total Protein 6.9 g/dL (6.6-8.7) 04/12/22 05:25 Albumin 3.9 g/dL (3.5-5.2) 04/12/22 05:25 Globulin 3.0 g/dL (1.3-4.6) 04/12/22 05:25 Urine Color Yellow (Yellow) 04/12/22 07:49 Urine Appearance Sl hazy (CLEAR) A 04/12/22 07:49 Urine pH 5 (5-7) 04/12/22 07:49 Ur Specific [place] 1.025 (1.005-1.030) 04/12/22 07:49 Urine Protein Neg (Negative) 04/12/22 07:49 Urine Glucose (UA) Norm (Normal) 04/12/22 07:49 Urine Ketones 1+ (Negative) H 04/12/22 07:49 Urine Blood 3+ (Negative) H 04/12/22 07:49 Urine Nitrate Negative (Negative) 04/12/22 07:49 Urine Bilirubin Neg (Negative) 04/12/22 07:49 Urine Urobilinogen Norm mg/dL (Negative) 04/12/22 07:49 Ur Leukocyte Esterase Negative (Negative) 04/12/22 07:49 Urine RBC 50-80 /hpf (0-2) H 04/12/22 07:49 Urine WBC 0-4 /hpf (0-5) H 04/12/22 07:49 Ur Squamous Epith Cells Rare /hpf (0-5) 04/12/22 07:49 Amorphous Sediment Not Reportable 04/12/22 07:49 Urine Bacteria Trace /hpf (NONE) 04/12/22 07:49 Urine Mucus 2+ /hpf 04/12/22 07:49 Discharge Plan Discharge Patient Disposition: Home Clinical Impression: Ureteral calculus Condition: Stable Prescriptions: New Flomax 0.4 mg capsule 0.4 mg PO DAILY Qty: 10 0RF No Action atorvastatin 10 mg tablet 10 mg PO BEDTIME metoprolol succinate 50 mg tablet extended release 24 hr 50 mg PO DAILY Glucosamine 500 mg Tablet 2,000 mg PO DAILY Rx Instructions: administer with a meal Aspir-81 81 mg Tablet,Delayed Release (Dr/Ec) 81 mg PO DAILY Prevacid 30 mg Capsule,Delayed Release(Dr/Ec) 30 mg PO DAILY doxazosin 4 mg tablet 4 mg PO DAILY furosemide 20 mg tablet 20 mg PO BID PRN (Reason: Edema) olmesartan 40 mg tablet 40 mg PO DAILY Linzess 290 mcg Capsule 290 mcg PO DAILY PRN (Reason: Constipation) Eliquis 5 mg tablet 5 mg PO BID Ocuvite Adult 50 Plus 250 mg (90 mg-160 mg) Capsule 1 cap PO QAM ondansetron 4 mg tablet,disintegrating 4 mg PO Q8H PRN (Reason: nausea and vomiting) Qty: 15 0RF oxycodone 5 mg tablet 5 mg PO Q4H PRN (Reason: pain) Qty: 20 0RF Discharge Orders: Discharge ED (Routine); Ordered 04/12/22 Ordered By: Yumiko Faust Referrals: Devonte Geiger MD [Physician] - Discharge Diet: Advance as tolerated Discharge Activity: Resume usual activity Patient Instructions: Opioid Safety, Pain Management Activity Restrictions/Additional Instructions: Make sure you are drinking plenty of fluids. Take the pain medication as prescribed. You can take 200 mg of ibuprofen 3 times daily as well. Return to the ER if you are having increasing pain, fever or vomiting. Call the urologist today to get set up for follow-up as soon as possible. Coding Level of Care Code ED Metrology Specialist for [place] Fwd Exam Detailed
[2022-04-12 07:50] VITALS: BP 128/64; PULSE 85; RESP 14; O2SAT 98
[2022-04-12 08:05] LABS: Urine Color Yellow (Yellow)
[2022-04-12 08:06] LABS: Add Urine Microscopic? YES; Bilirubin Urine Neg (Negative); Blood Urine 3+ (Negative); Glucose Urine UA Norm (Normal); Ketones Urine 1+ (Negative); Leukocyte Esterase Urine Negative (Negative); Nitrate Urine Negative (Negative); Protein Urine Neg (Negative); Specific Gravity, Urine 1.025 (1.005-1.030); Urine Appearance SL Hazy (CLEAR); Urobilinogen Urine Norm (Negative); pH Urine 5 (5-7)
[2022-04-12 08:07] LABS: WBC Urine 0-4 /hpf (0-5)
[2022-04-12 08:08] LABS: Bacteria Urine TRACE /hpf; Mucus Urine 2+ /hpf; Squamous Epithelial Cell Urine RARE /hpf (0-5)
[2022-04-12 08:09] LABS: Add Urine Culture? Yes; RBC Urine 50-80 /hpf (0-2)
== END 2022-04-12 08:34 | disposition home or self-care (01) ==
PROVIDERS: Emergency Medicine; Emergency Provider Emergency Medicine
DX: N20.1 Calculus of ureter (principal); Z79.82 Long term (current) use of aspirin; Z79.01 Long term (current) use of anticoagulants
CPT/HCPCS: 74176; 80053; 81001; 85025; 87086; 96361; 96374; 96375; 99285; J1885; J2270; J2405; J7030

== ENCOUNTER 2022-04-14 13:16 | Outpatient (CLI) | payer MEDICARE, BC, SELFPAY ==
--- NOTE | 2022-04-14 13:25 | XR_ITS ---
WS: [id number] Exam: XR KUB [id number] Date/Time of Exam: 04/14/2022 1:27 PM Reason For Exam: STONE No bowel obstruction or free air. Nonspecific bilateral pelvic calcifications seen. No sign of organ enlargement. Left total hip prosthesis partially visualized. Degenerative changes of the lumbar spine . XR/XR KUB [id number] IMPRESSION: 1. No acute abdominal process. 2. Nonspecific bilateral pelvic calcifications.
== END 2022-04-14 13:17 | disposition home or self-care (01) ==
LOC: RAD 13:21
PROVIDERS: PCP Internal Medicine; Visit Provider Urology
DX: Z96.642 Presence of left artificial hip joint (principal); N20.1 Calculus of ureter
CPT/HCPCS: 74018; 99204

== ENCOUNTER 2022-04-15 08:48 | Day surgery (SDC) | payer MEDICARE, BC, SELFPAY ==
[2022-04-14 15:25] VITALS: BMI 22.2
--- NOTE | 2022-04-14 15:34 | ECG_ITS ---
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 Measurements Intervals [place] Rate: 85 P: -7 MA: 163 QRS: -25 QRSD: 130 T: 83 QT: 369 QTc: 439 Interpretive Statements SINUS RHYTHM PROBABLE SEPTAL MYOCARDIAL INFARCTION , OF INDETERMINATE AGE [35 ms Q WAVE IN V1/V2] LATERAL MYOCARDIAL INFARCTION , OF INDETERMINATE AGE [40+ ms Q WAVE AND/OR ST/T ABNORMALITY IN I/aVL/V5/V6] No previous ECG available for comparison Electronically Signed On 04-15-2022 9:32:09 HALL MANAGER by Jimmy Borjas M.D. [email or web address]
[2022-04-15] VITALS (8 sets, daily range): BP systolic 135–162; BP diastolic 75–95; PULSE 72–80; RESP 14–17; TEMP 36.3–36.6; O2SAT 94–97
--- NOTE | 2022-04-15 09:05 | XR_ITS ---
WS: [id number] Exam: XR KUB [id number] Date/Time of Exam: 04/15/2022 9:16 AM Reason For Exam: Preop right ureteroscopy Comparison 04/14/2022. Right-sided 4 mm pelvic calcification thought to represent a distal right ureteral stone now superimp oses the urinary bladder. This could be within the bladder itself or in the region of the UVJ. Left p elvic calcification unchanged. No bowel obstruction or free air. No sign of organ enlargement. Severa l faceted calcifications seen in the upper right abdomen apparently represent known gallstones. Degen erative changes of the lumbar spine. Left total hip replacement partially visualized. XR/XR KUB [id number] IMPRESSION: 1. Right-sided 4 mm pelvic calcification has moved inferiorly about 3 cm and ma y represent a ureteral stone but is passed into the bladder or migrated to the region of the UVJ. 2. No acute abdominal finding. Cholelithiasis.
--- NOTE | 2022-04-15 09:05 | SC_ITS ---
WS: [id number] Exam: C-arm FL for Urology Date/Time of Exam: 04/15/2022 9:05 AM Reason For Exam: Right ureteroscopy Limited anterior-posterior C-arm images of the abdomen and pelvis are submitted for evaluation during retrograde pyelography and ureteroscopy. Images depict a right-sided ureteral catheter in place in satisfactory location. There is incomplete opacification of the right renal collecting system. Also noted is a ureteroscope positioned in the di stal left ureter. A prominent filling defect noted in the distal left ureter apparently represents th e patient's known distal left ureteral stone. No other significant finding on this limited study.
--- NOTE | 2022-04-15 10:01 | P.ANESASSM_ITS ---
Pre-Anesthetic Assessment Height/Weight: Height 1.93 m Weight 83.007 kg Preop Diagnosis: Bilateral ureteral calculi Operation Date: 04/15/22 10:55 Proposed Procedures p CYSTOSCOPY BILATERAL RETROGRADE URETEROSCOPY LASER STENT 69314 MODIFIER 26 79817,N20.1(Not Applicable) - Devonte Geiger MD s Retrograde Pyelogram(Bilateral) - MD lance Pearce Ureteroscopy(Bilateral) - MD lance Pearce Laser Lithotripsy(Bilateral) - MD lance Pearce Ureteral Stent Placement(Bilateral) - Devonte Geiger MD Familial anesthetic complications: None Was Beta Maggie taken within 24 hours: N/A Was Clonidine taken within 24 hours: N/A Last intake: Intake Last Liquid Date 04/14/22 Last Liquid Time 00:00 Last Solid Date 04/14/22 Last Solid Time 20:30 Social No alcohol and No tobacco former smoker Exam alert, oriented x 3, clear to auscultation bilaterally and regular rate & rhythm Airway Mallampati: Class II Dentition: partials CV/HEM Coronary Artery Disease, Congestive Heart Failure (prior to CABG - still limits fluid), Hypertension and Myocardial Infarction (CABG X5 20 years ago) pacemaker defibrillator doing well from cardiac perspective ablet to achieve 4 METS, no angina GI Gastroesophageal Reflux Disease and Peptic Ulcer Disease Metabolic Hyperlipidemia Anesthetic Plan ASA status: 4 Anesthesia: General Risk of > 500 ml blood loss (7ml/kg in children): No Medications/Allergies Home Medications Medication Instructions Recorded Confirmed Last Taken Type apixaban 5 mg tablet (Eliquis) 5 mg PO BID 04/10/22 04/14/22 04/14/22 History aspirin 81 mg tablet,delayed 81 mg PO DAILY 04/10/22 04/14/22 1 Day Ago History release ~04/13/22 atorvastatin 10 mg tablet 10 mg PO BEDTIME 04/10/22 04/14/22 04/14/22 History doxazosin 4 mg tablet 4 mg PO DAILY 04/10/22 04/14/22 04/14/22 History furosemide 20 mg tablet 20 mg PO BID PRN Edema 04/10/22 04/14/22 Unknown History glucosamine sulfate 500 mg tablet 2,000 mg PO DAILY 04/10/22 04/14/22 04/14/22 History (Glucosamine) lansoprazole 30 mg capsule,delayed 30 mg PO DAILY 04/10/22 04/14/22 04/14/22 H istory release (Prevacid) linaclotide 290 mcg capsule 290 mcg PO DAILY PRN Constipation 04/10/22 04/14/22 04/14/22 History (Linzess) metoprolol succinate 50 mg 50 mg PO DAILY 04/10/22 04/14/22 04/14/22 History tablet,extended release 24 hr [id number]-mkoan6 250 mg-dha 90 1 cap PO QAM 04/10/22 04/14/22 04/14/22 History mg-epa 160 kq-izcd-kggb-zeax capsule (Ocuvite Adult 50 Plus) olmesartan 40 mg tablet 40 mg PO DAILY 04/10/22 04/14/22 04/14/22 History ondansetron 4 mg disintegrating 4 mg PO Q8H PRN nausea and 04/10/22 04/14/22 Unknown Rx tablet vomiting #15 tabs oxycodone 5 mg tablet 5 mg PO Q4H PRN pain #20 tabs 04/10/22 04/14/22 04/14/22 Rx tamsulosin 0.4 mg capsule (Flomax) 0.4 mg PO DAILY #10 caps 04/12/22 04/14/22 04/14/22 Rx Allergies Allergy/AdvReac Type Severity Reaction Status Date / Time carvedilol [From Coreg] Allergy Unknown Verified 04/14/22 13:51 losartan Allergy Unknown Verified 04/14/22 13:51 mexiletine Allergy Unknown Verified 04/14/22 13:51 rosuvastatin [From Crestor] Allergy Unknown Verified 04/14/22 13:51 simvastatin Allergy Unknown Verified 04/14/22 13:51 tamsulosin Allergy Unknown Verified 04/14/22 13:51 valsartan [From Diovan] Allergy Unknown Verified 04/14/22 13:51 PFSH Anesthesia Family History (Updated 04/14/22 @ 13:56 by Vj Shearer) Mother , at age 99 CAD (coronary artery disease) Dementia Father , at age 67 CAD (coronary artery disease) Social History (Updated 04/14/22 @ 13:57 by Vj Shearer) Smoking and tobacco status: never smoked Alcohol intake: current Alcohol intake frequency: few times a month Adopted: No Household members: spouse Marital status: Current occupational status: retired History of recent travel: No Data Anesthesia Cardiac Studies: No Data to Display
[2022-04-15] MEDS: sodium chloride 0.9% 1,000 ML 30 ML IV (10:18)
--- NOTE | 2022-04-15 10:43 | W.PM.OPSUD ---
Surgery/Procedure H&P Update DATE OF PROCEDURE: April 15, 2022 DATE H&P PERFORMED: 04/14/22 H&P UPDATE INFORMATION: I have reviewed H&P completed within last 30 days, I have examined patient prior to procedure, No changes to prior documentation and H&P is in [facility] EMR on date indicated CHANGES TO PREVIOUS DOCUMENTATION: Right ureteral stone has migrated slightly distally in the ureter. The calcification on the left, which was interpreted as intraureteral on CT scan, has not moved PREOP DIAGNOSIS: Bilateral ureteral calculi PLANNED PROCEDURE: Operation Date: 04/15/22 10:55 Proposed Procedures p CYSTOSCOPY BILATERAL RETROGRADE URETEROSCOPY LASER STENT 94526 MODIFIER 26 24191,N20.1(Not Applicable) - Devonte Geiger MD s Retrograde Pyelogram(Bilateral) - Devonte Geiger MD s Ureteroscopy(Bilateral) - MD lance Pearce Laser Lithotripsy(Bilateral) - MD lance Pearce Ureteral Stent Placement(Bilateral) - Devonte Geiger MD
[2022-04-15] MEDS: levofloxacin-dextrose 5 % 500 MG/100 ML PREMIX 100 MG IV (11:15)
[2022-04-15] MEDS: lidocaine 2% Urojet 20 mL TOPICAL (11:48)
[2022-04-15] MEDS: iohexol 350 mg/mL 100 mL Btl 50 ML XX (12:20)
--- NOTE | 2022-04-15 13:02 | SUR.OPER ---
1149 UPDATED IN OPS
--- NOTE | 2022-04-15 13:49 | P.OP_ITS ---
Operative Report Date of procedure: April 15, 2022 Pre-op diagnosis: Bilateral ureteral calculi Post-op diagnosis: Tight urethral stricture Bilateral ureteral calculi Procedure done: 1. Cystoscopy, dilation of urethral stricture 2. BILATERAL retrograde ureteropyelogram 3. Incision of the right ureteral orifice, transurethral ureterotomy 4. RIGHT ureteroscopy, stent 5. LEFT ureteroscopy, laser lithotripsy, stent Implants: BILATERAL ureteral stents: 7 x 30 on the right, 6 x 30 on the left Specimens removed/disposition: Bilateral ureteral stone fragments Pathology: Bilateral ureteral stone fragments Surgeon: Fely Estimated blood loss: Minimal Urine output: Not measured Complications: None Findings: Anesthesia: General Condition: Stable Disposition: PACU Intraoperative findings: * Right ureteral stone was at the orifice. Required ureterotomy to extract the stone * Calcification felt to be intraureteral on the left on CT scan was in fact in the ureter. Required laser lithotripsy for treatment * Stents left indwelling * Urethra was mildly traumatized with dilation which because of his Eliquis led to more bleeding than usual but still not severe. Nath catheter left indwelling Brief History: Mr. Sánchez is a delightful 81-year-old white male who was recently diagnosed with a very symptomatic obstructing right distal ureteral stone. There was also a calcification that was interpreted on the CT scan to be in the left distal ureter but there was no evidence of an obstruction phenomenon outside and he had been completely asymptomatic on the left. Due to the severity of his symptoms he elected to proceed with treatment sooner than later. He is on Eliquis and his last dose was Wednesday.. With that in mind endoscopic treatment was the only option available in the short-term. Did review that if the blood thinner creat ed enough bleeding to obscure the view the plan would be to place a stent, allow adequate passive dilation of the ureter, and postpone the attempt at definitive treatment for couple weeks and perform off of Eliquis Procedure: After routine preoperative evaluation examination and obtaining of informed consent he was taken to the operating suite on 04/15/2022 where general anesthesia was administered without difficulty after appropriate timeout was performed, SCDs confirmed to be functioning, preoperative antibiotics administered, beta-jesse protocol confirmed. Prepped and draped in usual sterile fashion in dorsolithotomy position paying careful attention to avoiding pressure points. 21 [place] cystoscope with 30 degree lens was introduced into urethra and in the deep bulbar urethra a tight urethral stricture was encountered. Flexible tip guidewire was passed through the urethral stricture and on fluoroscopy was confirmed to be curling in the bladder. The urethral stricture was then dilated with a 18 [place] 10 cm balloon with no waist. A 17 [place] sheath was then utilized on the cystoscope and the scope was passed into the bladder through the dilated stricture. The bladder was carefully inspected with both 30 and 70 degree lenses. The right ureteral stone was found to be . Attempts at milking it from the ureter were unsuccessful. Attempts at grasping it with grasping forceps were also unsuccessful. A 365 ?m thulium superpulse laser fiber on soft tissue settings was utilized to incise the ureteral orifice on the right in order to extract the stone. The incision was approximately 0.5 to 1 cm in length. This allowed the stone to be milked out of the ureteral orifice. A guidewire was then passed and the ureteral orifice was dilated with a balloon catheter with no waist. The ureteroscope was then passed over the guidewire up the ureter. No additional stones were seen. Contrast was then injected through the scope for a RETROGRADE RIGHT URETEROPYELOGRAM demonstrating: Some filling defect consistent with some clot but no other stones were seen. The course and caliber of the ureter was normal. The cystoscope was then backloaded over the wire and a 7 [place] by 30 cm double- pigtail stent was advanced over the guidewire through the cystoscope into appropriate position as confirmed via fluoroscopy and cystoscopy. The stent was left indwelling to allow passive dilation and healing of the ureteral orifice to help reduce the risk of stenosis from the incision. Attention was then directed to the LEFT ureteral orifice. An 8 [place] cone-tip catheter was intubated into the left ureteral orifice for LEFT RETROGRADE URETEROPYELOGRAM demonstrating: Normal-appearing distal ureter and a filling defect consistent with a stone seen on CT scan with no evidence of severe dilation proximal to that. No other filling defects were noted. A flexible tip guidewire was then manipulated with assistance of a open-ended ureteral cath into the ureteral orifice and up the ureter easily bypassing the stone. The distal ureter was then dilated with a balloon. The ureteroscope was then advanced up the left ureter next to the wire and the stone was encountered in expected position. It was a pretty large stone. Stone was fragmented with a 365 ?m thulium superpulse laser fiber into sand and very small fragments. Most of these were flushed out of the ureter and the remaining fragments removed with an X catch basket. Final passage of the scope showed no fragments of consequence remaining. The cystoscope was then backloaded over the guidewire and a 6 [place] by 30 cm double-pigtail stent without string was easily advanced over the guidewire through the cystoscope into appropriate position as confirmed via fluoroscopy and cystoscopy. The bladder was drained of all the small fragments that had been dropped into the bladder and flushed into the bladder. The urethra was carefully inspected. There was some oozing in the urethra related to the dilation and for that reason a Nath catheter was left indwelling. He tolerated procedure well without complications and was awakened in the operating room and returned to the recovery room in stable condition Plans: 1. Anticipate discharge from outpatient surgery 2. Maintain Nath catheter until Wednesday the . 3. Stay off Eliquis for total of 3 days to help facilitate healing of the urethra. 4. Patient and trained in catheter removal at home. 5. Leave the stent indwelling for about 3 weeks to allow adequate healing before removing in the office
--- NOTE | 2022-04-15 14:11 | ANE.PACU2 ---
Inpatient post-anesthesia follow up: Airway intact: Yes Vital signs: Temperature 98 F Pulse Rate 78 Respiratory Rate 16 Blood Pressure 161/81 Pulse Oximetry 94 Oxygen Delivery Me thod Room Air Oxygen Flow Rate 2 Fraction of Inspir ed Oxygen Hydration adequate: Yes Nausea and vomiting: No Pain level: 1 Mental status: Baseline
--- NOTE | 2022-04-15 14:36 | SUR.PHASEII ---
1420 INSTRUCTED PT AND OF DISCONTINUING VEGAS CATHETER AND BOTH PT AND VERBALIZED UNDERSTANDING AND REPEATED BACK THE INSTRUCTIONS TO ME
== END 2022-04-15 14:50 | disposition home or self-care (01) ==
LOC: RAD 08:50 → OPS 09:09
PROVIDERS: PCP Internal Medicine; Visit Provider Urology
PROC: 0TJB8ZZ Inspection of Bladder, Via Natural or Artificial Opening Endoscopic (ICD-10-PCS; CPT 52000; principal; 2022-04-15 10:35)
PROC: (CPT 74420; 2022-04-15 10:35)
PROC: 0TJ98ZZ Inspection of Ureter, Via Natural or Artificial Opening Endoscopic (ICD-10-PCS; CPT 52351; 2022-04-15 10:35)
PROC: (CPT 52290; 2022-04-15 10:35)
PROC: (CPT 50605; 2022-04-15 10:35)
DX: N20.1 Calculus of ureter (principal); N35.919 Unspecified urethral stricture, male, unspecified site; I25.10 Atherosclerotic heart disease of native coronary artery without angina pectoris; I11.0 Hypertensive heart disease with heart failure; I50.9 Heart failure, unspecified; Z95.1 Presence of aortocoronary bypass graft; I25.2 Old myocardial infarction; Z95.0 Presence of cardiac pacemaker; K21.9 Gastro-esophageal reflux disease without esophagitis; Z87.11 Personal history of peptic ulcer disease; E78.5 Hyperlipidemia, unspecified; Z79.82 Long term (current) use of aspirin; Z96.642 Presence of left artificial hip joint
CPT/HCPCS: 52290; 52332; 52351; 52356; 74018; 76000; 82365; 88300; 93005; 99204; C2625; J1100; J1956; J2405; J2704; J3010; J7030; Q9967

== ENCOUNTER 2022-05-13 11:46 | Outpatient (CLI) | payer MEDICARE, BC, SELFPAY ==
--- NOTE | 2022-05-13 12:06 | XR_ITS ---
WS: [id number] Exam: XR [id number] Date/Time of Exam: 05/13/2022 12:09 PM Reason For Exam: stones No bowel obstruction or free air. There are bilateral ureteral stents in place both appear to be in s atisfactory location. No sign of organ enlargement. Bony structures are intact. 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 XR/XR KUB [id number] IMPRESSION: 1. Bilateral ureteral stent catheters in place appearing to be in satisfactory position.
== END 2022-05-13 11:47 | disposition home or self-care (01) ==
LOC: RAD 11:58
PROVIDERS: PCP Internal Medicine; Visit Provider Urology
DX: N20.0 Calculus of kidney (principal); N20.9 Urinary calculus, unspecified; Z96.0 Presence of urogenital implants
CPT/HCPCS: 74018; 99213

== ENCOUNTER 2022-05-17 22:50 | Emergency (ER) | payer MEDICARE, BC, SELFPAY ==
[2022-05-17 23:01] VITALS: BP 126/60; PULSE 83; RESP 28; TEMP 37.4; O2SAT 93; BMI 22.2
--- NOTE | 2022-05-17 23:52 | ED_ITS ---
Documented by User: [email or web address] Arnett 05/18/22 17:10 HPI - Nausea/Vomiting/Diarrhea General: Chief complaint: Nausea/Vomiting/Diarrhea Stated complaint: abdomen pain, n/v Time Seen by Provider: 05/17/22 23:43 History of Present Illness: Patient is a 81-year-old male who comes to the ED with nausea and vomiting. Patient has recently seen Dr. Geiger couple times over the past 2 months for ureteral stone and stents were placed and recently removed on May 13, 2022. Patient urethral stricture and has to straight cath once daily. The rest of the evening he was feeling okay and denied any other episodes of emesis. This morning at around 10 AM he started developing severe nausea and has been having multiple episodes of emesis all throughout the afternoon and tonight. Endorses having a fever and chills as well. Patient had a temperature as high as 102.6. He has not taken any Tylenol or ibuprofen today. Denies any current abdominal or flank pain and states that he just feels very nauseous. Denies any episodes of diarrhea today. He has not been able to eat anything today and is having trouble keeping any p.o. fluids down. Associated nausea: Yes Associated symtoms: Reports nausea; Denies change in vision, chest pain, dysuria, fatigue, headache(s) or palpitations Review of Systems Const: Reports: fever(s) and chills; Denies: fatigue Eyes: Denies: change in vision or eye discomfort ENMT: Denies: throat pain, odynophagia, nasal discharge or nasal congestion Card: Denies: chest pain, palpitations, edema, swelling of feet/ankles, dyspnea on exertion or orthopnea Resp: Denies: dyspnea, productive cough or non-productive cough GI: Reports: nausea, vomiting and diarrhea; Denies: abdominal pain, constipation or hematochezia : Denies: flank pain, difficulty urinating, dysuria or hematuria Musc: Denies: neck pain, back pain or extremity swelling Skin/Breast: Denies: rash or new lesions Neuro: Denies: headache(s), numbness in extremities or weakness in extremities PFS ED PFSH: Medical History Postprocedural urethral stricture Urolithiasis Family History Mother , at age 99 CAD (coronary artery disease) Dementia Father , at age 67 CAD (coronary artery disease) Social History Smoking and tobacco status: never smoked Alcohol intake: current Alcohol intake frequency: few times a month Adopted: No Household members: spouse Marital status: Current occupational status: retired Physical Exam Const: COMMON NORMALS: patient oriented x3 and alert GENERAL APPEARANCE: cooperative HENMT: COMMON NORMALS: normocephalic HEAD & SCALP: normocephalic MOUTH: Normal oral and palatal mucosa present THROAT: posterior oropharynx normal and uvula midline Neck/C-Spine: COMMON NORMALS: supple GENERAL: Yes normal visual inspection Resp: COMMON NORMALS: normal respiratory effort, No retractions, No use of accessory muscles and clear to auscultation bilaterally AUSCULTATION: clear to auscultation bilaterally Cardio: COMMON NORMALS: regular rate, regular rhythm, S1 normal heart sound present, S2 normal heart sound present, No gallops present (Cardio), No clicks present (Cardio), No murmurs present (Cardio) and Peripheral pulses 2+ throughout RATE: regular rate RHYTHM: regular rhythm HEART SOUNDS: S1 normal heart sound present and S2 normal heart sound present PERIPHERAL PULSES: Peripheral pulses 2+ throughout GI: COMMON NORMALS: Normal to inspection, nondistended, normoactive bowel sounds present, Soft to palpation, non-tender and no masses PALPATION: Yes Soft to palpation : COMMON NORMALS: Yes no CVA tenderness BLADDER/KIDNEY EXAM: Yes no CVA tenderness Back/Pelvis: COMMON NORMALS: no CVA tenderness Extremity: COMMON NORMALS: normal to inspection Neuro: COMMON NORMALS: patient oriented x3 SENSORIUM/ORIENTATION: Yes alert GAIT: Yes Normal gait present Skin: GENERAL SKIN EXAM: dry skin Course Vital Signs: Vital signs: Vital Signs Temperature 102.4 F H 05/18/22 04:10 Pulse Rate 83 05/17/22 23:01 Respiratory Rate 28 H 05/17/22 23:01 Blood Pressure 126/60 05/17/22 23:01 Pulse Oximetry 93 05/17/22 23:01 Oxygen Delivery Me thod 05/17/22 23:01 MDM - Nausea/Vomiting/Diarrhea Medical Decision Making Patient is a 81-year-old male who comes to the ED with nausea and vomiting. Symptoms started around 10 AM today. Endorses fever and chills. Denies any abdominal or flank pain. Patient has recently seen Dr. Geiger couple times over the past 2 months for ureteral stone and stents were placed and recently removed on May 13, 2022. Patient urethral stricture and has to straight cath once daily. Vitals are stable. Patient was actively vomiting in waiting room. In the ED room he appears nontoxic and in no acute distress or pain. No abdominal tenderness or CVA tenderness noted. Rest of exam is benign. White blood cell count of 7.8 and rest of CBC and CMP are unremarkable. CT of abdomen pelvis shows mildly dilated left collecting system and mild perinephric fat stranding. UA shows evidence of UTI. Patient was given a liter of IV fluids and nausea meds and his symptoms resolved. He was not having any more nausea here in the ED and able to tolerate p.o. fluids. IV antibiotics given here in the ED. patient diagnosed with pyelonephritis and was stable for discharge home and try outpatient treatment. Sent home with a prescription for ciprofloxacin and Zofran for nausea. He was given strict return to ED precautions. Follow-up with PCP in the next 2 to 3 days for reevaluation. Contact Dr. Geiger's office as well to set up appointment. Patient understood and agreed with plan. Lab Data I reviewed the patient's lab results. 05/17/22 23:46 05/17/22 23:46 Radiology Impressions Abdomen/Pelvis CT 05/17/22 23:57 IMPRESSION: Mildly dilated left collecting system and mild perinephric fat stranding is new from comparison but otherwise nonspecific in significance. No obstructing lesion visible. Cannot exclude infection. COMMENTS: Consistent with the [employer]'s Incidental Findings Committee white paper (J Am Tima Radiol 2018): Any incidental renal lesion less than 1 cm or classified as too small to characterize, or any incidental cystic renal lesion characterized as simple-appearing, is likely benign. No follow-up imaging is recommended for these lesions per consensus recommendations based on imaging criteria. Laboratory Results WBC 7.8 10^3/uL (4.0-10.0) 05/17/22 23:46 RBC 3.87 10^6/uL (4.1-5.3) L 05/17/22 23:46 Hgb 12.0 g/dL (11.7-16.6) 05/17/22 23:46 Hct 35.9 % (42.0-52.0) L 05/17/22: MCV 92.8 fl (80-94) 05/17/22 23: MCH 31.0 pg (28.0-34.0) 05/17/22: MCHC 33.4 g/dL (30.0-36.0) 05/17/22: RDW 12.8 % (12.1-15.1) 05/17/22: Plt Count 105 10^3/cmm (130-400) L 05/17/22: MPV 9.9 fL (7.4-10.4) 05/17/22: Neut % (Auto) 85.3 % 05/17/22: Lymph % (Auto) 6.5 % 05/17/22: [place] % (Auto) 6.9 % 05/17/22: Eos % (Auto) 0.0 % 05/17/22 23: Baso % (Auto) 0.3 % 05/17/22 23:46 Neut # (Auto) 6.65 10^3/uL (1.8-7.7) 05/17/22: Lymph # (Auto) 0.5 10^3/uL (0.8-4.8) L 05/17/22 23:46 [place] # (Auto) 0.5 10^3/uL (0.2-0.9) 05/17/22 23: Eos # (Auto) 0.0 10^3/uL (0.0-0.8) 05/17/22 23:46 Baso # (Auto) 0.0 10^3/uL (0.0-0.1) 05/17/22: Nucleated RBC % (auto) 0 % 05/17/22: Nucleated RBCs # 0.0 /100WBC 05/17/22: Sodium 135 mmol/L (136-145) L 05/17/22: Potassium 4.0 mmol/L (3.5-5.1) 05/17/22: Chloride 102 mmol/L (98-107) 05/17/22 23:46 Carbon Dioxide 23 mmol/L (22-29) 05/17/22 23:46 Anion Gap 14.0 (5-19) 05/17/22 23:46 BUN 14 mg/dL (8-23) 05/17/22 23:46 Creatinine 1.0 mg/dL (0.7-1.2) 05/17/22 23:46 GFR Calculation Not Reportable 05/17/22 23:46 Glucose 134 mg/dL (65-115) H 05/17/22 23:46 Calculated Osmolality 282 mOsm/kg (285-295) L 05/17/22 23:46 Calcium 8.6 mg/dL (8.5-10.5) 05/17/22 23:46 Total Bilirubin 1.1 mg/dL (0.15-1.2) 05/17/22 23:46 AST 14 U/L (0-40) 05/17/22 23:46 ALT 8 U/L (0-41) 05/17/22 23:46 Alkaline Phosphatase 105 U/L (40-130) 05/17/22 23:46 Total Protein 6.3 g/dL (6.6-8.7) L 05/17/22 23:46 Albumin 3.5 g/dL (3.5-5.2) 05/17/22 23:46 Globulin 2.8 g/dL (1.3-4.6) 05/17/22 23:46 Lipase 10 U/L (13-60) L 05/17/22 23:46 Urine Color Yellow (Yellow) 05/18/22 01:40 Urine Appearance Cloudy (CLEAR) A 05/18/22 01:40 Urine pH 5 (5-7) 05/18/22 01:40 Ur Specific [place] 1.010 (1.005-1.030) 05/18/22 01:40 Urine Protein 1+ (Negative) H 05/18/22 01:40 Urine Glucose (UA) Norm (Normal) 05/18/22 01:40 Urine Ketones Negative (Negative) 05/18/22 01:40 Urine Blood 3+ (Negative) H 05/18/22 01:40 Urine Nitrate Positive (Negative) H 05/18/22 01:40 Urine Bilirubin 1+ (Negative) H 05/18/22 01:40 Urine Urobilinogen 1 mg/dL (Negative) H 05/18/22 01:40 Ur Leukocyte Esterase 2+ (Negative) H 05/18/22 01:40 Urine RBC Too numerous to cnt /hpf (0-2) H 05/18/22 01:40 Urine WBC >100 /hpf (0-5) H 05/18/22 01:40 Ur Squamous Epith Cells 0-4 /hpf (0-5) H 05/18/22 01:40 Amorphous Sediment Not Reportable 05/18/22 01:40 Urine Bacteria 3+ /hpf (NONE) H 05/18/22 01:40 Urine Mucus 1+ /hpf 05/18/22 01:40 Discharge Plan Discharge Patient Disposition: Home Clinical Impression: Pyelonephritis Condition: Stable Prescriptions: New ciprofloxacin HCl 500 mg tablet 500 mg PO BID 10 Days Qty: 20 0RF ondansetron 4 mg tablet,disintegrating 4 mg PO Q8H PRN (Reason: nausea and vomiting) Qty: 20 0RF No Action atorvastatin 10 mg tablet 10 mg PO BEDTIME metoprolol succinate 50 mg tablet extended release 24 hr 50 mg PO DAILY glucosamine sulfate [Glucosamine] 500 mg Tablet 2,000 mg PO DAILY Rx Instructions: administer with a meal aspirin 81 mg Tablet,Delayed Release (Dr/Ec) 81 mg PO DAILY lansoprazole [Prevacid] 30 mg Capsule,Delayed Release(Dr/Ec) 30 mg PO DAILY doxazosin 4 mg tablet 4 mg PO DAILY furosemide 20 mg tablet 20 mg PO BID PRN (Reason: Edema) olmesartan 40 mg tablet 40 mg PO DAILY Linzess 290 mcg Capsule 290 mcg PO DAILY PRN (Reason: Constipation) Eliquis 5 mg tablet 5 mg PO BID Ocuvite Adult 50 Plus 250 mg (90 mg-160 mg) Capsule 1 cap PO QAM ondansetron 4 mg tablet,disintegrating 4 mg PO Q8H PRN (Reason: nausea and vomiting) Qty: 15 0RF oxycodone 5 mg tablet 5 mg PO Q4H PRN (Reason: pain) Qty: 20 0RF tamsulosin [Flomax] 0.4 mg capsule 0.4 mg PO DAILY Qty: 10 0RF Discharge Orders: Discharge ED (Routine); Ordered 05/18/22 Ordered By: Cole Levy Referrals: Manfred Zabala DO [Primary Care Provider] - Discharge Diet: Advance as tolerated and Clear Liquid Discharge Activity: Increase activity as tolerated Patient Instructions: Pyelonephritis Activity Restrictions/Additional Instructions: Follow-up with medical provider as directed in the next 2 to 3 days for reevaluation. Take medications as prescribed. Return to the ER or your medical provider if condition worsens. Please read and understand discharge instructions. Thank you for choosing [facility] for your healthcare needs today. Please realize this is an emergency room and that we are providing you with a medical screening exam and this may not be complete and all inclusive of all the testing and or work up that you may need to determine your ailment or severity of your illness. It is very important that you follow up as instructed or that you return to the Emergency Department should you have concerns or if your condition changes or worsens in any way. Coding Level of Care Code ED Pharmacy Services Representative for [facility] Documented by User: Bo Feliz DO 05/22/22 18:38 HPI - Nausea/Vomiting/Diarrhea General: Chief complaint: Nausea/Vomiting/Diarrhea Stated complaint: abdomen pain, n/v Time Seen by Provider: 05/17/22 23:43 [facility] ED PFSH: Medical History Postprocedural urethral stricture Urolithiasis Family History Mother , at age 99 CAD (coronary artery disease) Dementia Father , at age 67 CAD (coronary artery disease) Social History Smoking and tobacco status: never smoked Alcohol intake: current Alcohol intake frequency: few times a month Adopted: No Household members: spouse Marital status: Current occupational status: retired Course Vital Signs: Vital signs: Vital Signs Temperature 102.4 F H 05/18/22 04:10 Pulse Rate 83 05/17/22 23:01 Respiratory Rate 28 H 05/17/22 23:01 Blood Pressure 126/60 05/17/22 23:01 Pulse Oximetry 93 05/17/22 23:01 Oxygen Delivery Me thod 05/17/22 23:01 MDM - Nausea/Vomiting/Diarrhea Medical Decision Making Patient is a 81-year-old male who comes to the ED with nausea and vomiting. Symptoms started around 10 AM today. Endorses fever and chills. Denies any abdominal or flank pain. Patient has recently seen Dr. Geiger couple times over the past 2 months for ureteral stone and stents were placed and recently removed on May 13, 2022. Patient urethral stricture and has to straight cath once daily. Vitals are stable. Patient was actively vomiting in waiting room. In the ED room he appears nontoxic and in no acute distress or pain. No abdominal tenderness or CVA tenderness noted. Rest of exam is benign. White blood cell count of 7.8 and rest of CBC and CMP are unremarkable. CT of abdomen pelvis shows mildly dilated left collecting system and mild perinephric fat stranding. UA shows evidence of UTI. Patient was given a liter of IV fluids and nausea meds and his symptoms resolved. He was not having any more nausea here in the ED and able to tolerate p.o. fluids. IV antibiotics given here in the ED. patient diagnosed with pyelonephritis and was stable for discharge home and try outpatient treatment. Sent home with a prescription for ciprofloxacin and Zofran for nausea. He was given strict return to ED precautions. Follow-up with PCP in the next 2 to 3 days for reevaluation. Contact Dr. Geiger's office as well to set up appointment. Patient understood and agreed with plan. This patient was originally seen by Mr. Mildred PA-C. I agree with his history, evaluation, and treatment Lab Data 05/17/22 23:46 05/17/22 23:46 Radiology Impressions Abdomen/Pelvis CT 05/17/22 23:57 IMPRESSION: Mildly dilated left collecting system and mild perinephric fat stranding is new from comparison but otherwise nonspecific in significance. No obstructing lesion visible. Cannot exclude infection. COMMENTS: Consistent with the [employer]'s Incidental Findings Committee white paper (J Am Tima Radiol 2018): Any incidental renal lesion less than 1 cm or classified as too small to characterize, or any incidental cystic renal lesion characterized as simple-appearing, is likely benign. No follow-up imaging is recommended for these lesions per consensus recommendations based on imaging criteria. Laboratory Results WBC 7.8 10^3/uL (4.0-10.0) 05/17/22 23: RBC 3.87 10^6/uL (4.1-5.3) L 05/17/22 23:46 Hgb 12.0 g/dL (11.7-16.6) 05/17/22: Hct 35.9 % (42.0-52.0) L 05/17/22: MCV 92.8 fl (80-94) 05/17/22: MCH 31.0 pg (28.0-34.0) 05/17/22: MCHC 33.4 g/dL (30.0-36.0) 05/17/22: RDW 12.8 % (12.1-15.1) 05/17/22: Plt Count 105 10^3/cmm (130-400) L 05/17/22: MPV 9.9 fL (7.4-10.4) 05/17/22 23: Neut % (Auto) 85.3 % 05/17/22 23:46 Lymph % (Auto) 6.5 % 05/17/22:46 [place] % (Auto) 6.9 % 05/17/22:46 Eos % (Auto) 0.0 % 05/17/22: Baso % (Auto) 0.3 % 05/17/22:46 Neut # (Auto) 6.65 10^3/uL (1.8-7.7) 05/17/22 23: Lymph # (Auto) 0.5 10^3/uL (0.8-4.8) L 05/17/22 23:46 [place] # (Auto) 0.5 10^3/uL (0.2-0.9) 05/17/22:46 Eos # (Auto) 0.0 10^3/uL (0.0-0.8) 05/17/22 23: Baso # (Auto) 0.0 10^3/uL (0.0-0.1) 05/17/22: Nucleated RBC % (auto) 0 % 05/17/22 23:46 Nucleated RBCs # 0.0 /100WBC 05/17/22 23:46 Sodium 135 mmol/L (136-145) L 05/17/22 23:46 Potassium 4.0 mmol/L (3.5-5.1) 05/17/22 23:46 Chloride 102 mmol/L (98-107) 05/17/22 23:46 Carbon Dioxide 23 mmol/L (22-29) 05/17/22 23:46 Anion Gap 14.0 (5-19) 05/17/22 23:46 BUN 14 mg/dL (8-23) 05/17/22 23:46 Creatinine 1.0 mg/dL (0.7-1.2) 05/17/22 23:46 GFR Calculation Not Reportable 05/17/22 23:46 Glucose 134 mg/dL (65-115) H 05/17/22 23:46 Calculated Osmolality 282 mOsm/kg (285-295) L 05/17/22 23:46 Calcium 8.6 mg/dL (8.5-10.5) 05/17/22 23:46 Total Bilirubin 1.1 mg/dL (0.15-1.2) 05/17/22 23:46 AST 14 U/L (0-40) 05/17/22 23:46 ALT 8 U/L (0-41) 05/17/22 23:46 Alkaline Phosphatase 105 U/L (40-130) 05/17/22 23:46 Total Protein 6.3 g/dL (6.6-8.7) L 05/17/22 23:46 Albumin 3.5 g/dL (3.5-5.2) 05/17/22 23:46 Globulin 2.8 g/dL (1.3-4.6) 05/17/22 23:46 Lipase 10 U/L (13-60) L 05/17/22 23:46 Urine Color Yellow (Yellow) 05/18/22 01:40 Urine Appearance Cloudy (CLEAR) A 05/18/22 01:40 Urine pH 5 (5-7) 05/18/22 01:40 Ur Specific [place] 1.010 (1.005-1.030) 05/18/22 01:40 Urine Protein 1+ (Negative) H 05/18/22 01:40 Urine Glucose (UA) Norm (Normal) 05/18/22 01:40 Urine Ketones Negative (Negative) 05/18/22 01:40 Urine Blood 3+ (Negative) H 05/18/22 01:40 Urine Nitrate Positive (Negative) H 05/18/22 01:40 Urine Bilirubin 1+ (Negative) H 05/18/22 01:40 Urine Urobilinogen 1 mg/dL (Negative) H 05/18/22 01:40 Ur Leukocyte Esterase 2+ (Negative) H 05/18/22 01:40 Urine RBC Too numerous to cnt /hpf (0-2) H 05/18/22 01:40 Urine WBC >100 /hpf (0-5) H 05/18/22 01:40 Ur Squamous Epith Cells 0-4 /hpf (0-5) H 05/18/22 01:40 Amorphous Sediment Not Reportable 05/18/22 01:40 Urine Bacteria 3+ /hpf (NONE) H 05/18/22 01:40 Urine Mucus 1+ /hpf 05/18/22 01:40 Discharge Plan Discharge Patient Disposition: Home Clinical Impression: Pyelonephritis Condition: Stable Prescriptions: New ciprofloxacin HCl 500 mg tablet 500 mg PO BID 10 Days Qty: 20 0RF ondansetron 4 mg tablet,disintegrating 4 mg PO Q8H PRN (Reason: nausea and vomiting) Qty: 20 0RF No Action atorvastatin 10 mg tablet 10 mg PO BEDTIME metoprolol succinate 50 mg tablet extended release 24 hr 50 mg PO DAILY glucosamine sulfate [Glucosamine] 500 mg Tablet 2,000 mg PO DAILY Rx Instructions: administer with a meal aspirin 81 mg Tablet,Delayed Release (Dr/Ec) 81 mg PO DAILY lansoprazole [Prevacid] 30 mg Capsule,Delayed Release(Dr/Ec) 30 mg PO DAILY doxazosin 4 mg tablet 4 mg PO DAILY furosemide 20 mg tablet 20 mg PO BID PRN (Reason: Edema) olmesartan 40 mg tablet 40 mg PO DAILY Linzess 290 mcg Capsule 290 mcg PO DAILY PRN (Reason: Constipation) Eliquis 5 mg tablet 5 mg PO BID Ocuvite Adult 50 Plus 250 mg (90 mg-160 mg) Capsule 1 cap PO QAM ondansetron 4 mg tablet,disintegrating 4 mg PO Q8H PRN (Reason: nausea and vomiting) Qty: 15 0RF oxycodone 5 mg tablet 5 mg PO Q4H PRN (Reason: pain) Qty: 20 0RF tamsulosin [Flomax] 0.4 mg capsule 0.4 mg PO DAILY Qty: 10 0RF Discharge Orders: Discharge ED (Routine); Ordered 05/18/22 Ordered By: Cole Levy Referrals: Manfred Zabala DO [Primary Care Provider] - Discharge Diet: Advance as tolerated and Clear Liquid Discharge Activity: Increase activity as tolerated Patient Instructions: Pyelonephritis Activity Restrictions/Additional Instructions: Follow-up with medical provider as directed in the next 2 to 3 days for reevaluation. Take medications as prescribed. Return to the ER or your medical provider if condition worsens. Please read and understand discharge instructions. Thank you for choosing [facility] for your healthcare needs today. Please realize this is an emergency room and that we are providing you with a medical screening exam and this may not be complete and all inclusive of all the testing and or work up that you may need to determine your ailment or severity of your illness. It is very important that you follow up as instructed or that you return to the Emergency Department should you have concerns or if your condition changes or worsens in any way. Coding Level of Care Code ED Pharmacy Services Representative for Elodia Mack
[2022-05-17] MEDS: sodium chloride 0.9% 500 ML 999 ML IV (23:54)
[2022-05-17] MEDS: ondansetron 2 mg/ML SDV 2 mL 4 MG IVP (23:54)
[2022-05-17 23:55] LABS: Basophils % 0.3 %; Hematocrit 35.9 % (42.0-52.0); Lymphocytes # 0.5 10^3/uL (0.8-4.8); Lymphocytes % 6.5 %; Mean Corpuscular HGB Conc 33.4 g/dL (30.0-36.0); Mean Corpuscular Volume 92.8 fl (80-94); Mean Platelet Volume 9.9 fL (7.4-10.4); Monocytes # 0.5 10^3/uL (0.2-0.9); Monocytes % 6.9 %; Neutrophils # 6.65 10^3/uL (1.8-7.7); Neutrophils % 85.3 %; Nucleated Red Blood Cells % 0 %; Platelet Count 105 10^3/cmm (130-400); Red Blood Count 3.87 10^6/uL (4.1-5.3); Red Cell Distribution Width 12.8 % (12.1-15.1); White Blood Count 7.8 10^3/uL (4.0-10.0)
--- NOTE | 2022-05-17 23:57 | CTR_ITS ---
PROCEDURE INFORMATION: Exam: CT Abdomen And Pelvis With Contrast Exam date and time: 05/18/2022 12:38 AM Age: 81 years old Clinical indication: Vomiting; Abdominal pain; Generalized; Prior surgery; Surgery date: 3-7 days post-operative; Surgery type: Uretheral stricture 05/13/22; Additional info: Nausea and vomiting, recent urological procedure 05/13 TECHNIQUE: Imaging protocol: Computed tomography of the abdomen and pelvis with contrast. Radiation optimization: All CT scans at this facility use at least one of these dose optimization techniques: automated exposure control; mA and/or kV adjustment per patient size (includes targeted exams where dose is matched to clinical indication); or iterative reconstruction. Contrast material: OMNI 350; Contrast volume: 75 ml; Contrast route: INTRAVENOUS (IV); REPORTING DATA: Count of CT and Cardiac NM exams in prior 12 months: This patient has received 2 known CTs and 0 known cardiac nuclear medicine studies in the 12 months prior to the current study. COMPARISON: CT kidney stone [id number] 04/12/2022 5:56 AM RADIATION DOSE METRICS: Total DLP (mGy-cm): 901.51 FINDINGS: Tubes, catheters and devices: ICD leads within right heart chambers. Liver: Normal. No mass. Gallbladder and bile ducts: Cholelithiasis. Nondilated biliary system. Negative for gallbladder wall thickening. Pancreas: Normal. No ductal dilation. Spleen: Normal. No splenomegaly. Adrenal glands: Normal. No mass. Kidneys and ureters: Small simple bilateral renal cortical cysts. Resolved right hydronephrosis which was seen previously. Mild severity left collecting system hydroureteronephrosis new from comparison. Negative for renal stones. Negative for ureteral stones. Unremarkable renal parenchyma enhancement pattern bilaterally. Left perinephric fat stranding may be mildly increased from prior. Stomach and bowel: Diverticulosis coli. Negative for bowel obstruction or perforation. Appendix: No evidence of appendicitis. Intraperitoneal space: Unremarkable. No free air. No significant fluid collection. Vasculature: Diffuse abdominal aorta atherosclerosis. Negative for aneurysm. Lymph nodes: Unremarkable. No enlarged lymph nodes. Urinary bladder: Unremarkable as visualized. Reproductive: Moderate severity prostatomegaly. Calcifications within the prostate gland are in stable position from prior. 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 No fractures.The lumbar spine demonstrates moderate discogenic and apophyseal joint degenerative changes at multiple levels. Grade 1 L4-L5 spondylolisthesis. Soft tissues: Unremarkable. CT/CT abdomen pelvis w con* [id number] IMPRESSION: Mildly dilated left collecting system and mild perinephric fat stranding is new from comparison but otherwise nonspecific in significance. No obstructing lesion visible. Cannot exclude infection. COMMENTS: Consistent with the [employer]'s Incidental Findings Committee white paper (J Am Tima Radiol 2018): Any incidental renal lesion less than 1 cm or classified as too small to characterize, or any incidental cystic renal lesion characterized as simple-appearing, is likely benign. No follow-up imaging is recommended for these lesions per consensus recommendations based on imaging criteria.
[2022-05-18 00:14] LABS: Alanine Aminotransferase 8 U/L (0-41); Albumin Level 3.5 g/dL (3.5-5.2); Alkaline Phosphatase 105 U/L (40-130); Aspartate Amino Transferase 14 U/L (0-40); Blood Urea Nitrogen 14 mg/dL (8-23); Calcium 8.6 mg/dL (8.5-10.5); Carbon Dioxide 23 mmol/L (22-29); Chloride 102 mmol/L (98-107); Globulin 2.8 g/dL (1.3-4.6); Glucose 134 mg/dL (65-115); Lipase 10 U/L (13-60); Osmolality Calculated 282 mOsm/kg (285-295); Sodium 135 mmol/L (136-145); Total Bilirubin 1.1 mg/dL (0.15-1.2); Total Protein 6.3 g/dL (6.6-8.7)
[2022-05-18] MEDS: iohexol 350 mg/mL 500 mL Btl (per mL) IV (00:41)
[2022-05-18] MEDS: sodium chloride 0.9% 500 ML 999 ML IV (01:09)
[2022-05-18] MEDS: metoclopramide 5 mg/mL SDV 2 mL 10 MG IVP (01:09)
[2022-05-18 02:13] LABS: Add Urine Microscopic? YES; Bilirubin Urine 1+ (Negative); Blood Urine 3+ (Negative); Glucose Urine UA Norm (Normal); Ketones Urine Negative (Negative); Leukocyte Esterase Urine 2+ (Negative); Nitrate Urine Positive (Negative); Protein Urine 1+ (Negative); Urine Appearance Cloudy (CLEAR); Urine Color Yellow (Yellow); Urobilinogen Urine 1 mg/dL (Negative); pH Urine 5 (5-7)
[2022-05-18 02:15] LABS: Add Urine Culture? Yes; Bacteria Urine 3+ /hpf; Mucus Urine 1+ /hpf; RBC Urine TOO NUMEROUS TO CNT /hpf (0-2); Squamous Epithelial Cell Urine 0-4 /hpf (0-5); WBC Urine >100 /hpf (0-5)
[2022-05-18] MEDS: cefTRIAXone 1,000 MG in sodium chloride 0.9% (plus) 50 ML 100 MG IV (02:48)
[2022-05-18 03:21] VITALS: TEMP 38.4
[2022-05-18] MEDS: acetaminophen 500 mg Tablet 1000 MG PO (03:25)
[2022-05-18 04:10] VITALS: TEMP 39.1
[2022-05-18] MEDS: ibuprofen 200 mg Tablet 400 MG PO (04:14)
--- NOTE | 2022-05-18 04:15 | PC.NURSE ---
pt found to have temp elevated more. notified. orders rec'd.
== END 2022-05-18 05:00 | disposition home or self-care (01) ==
PROVIDERS: Emergency Provider Physician Assistant; PCP Internal Medicine
DX: N12 Tubulo-interstitial nephritis, not specified as acute or chronic (principal); Z79.01 Long term (current) use of anticoagulants; Z79.82 Long term (current) use of aspirin
CPT/HCPCS: 74177; 80053; 81001; 83690; 85025; 87077; 87086; 87186; 96365; 96366; 96375; 99285; J0696; J2405; J2765; J7040; Q9967